=== PATIENT | male | born 1935 | race Asian ===

== ENCOUNTER 2019-08-29 02:35 | Inpatient (IN) | payer OTHER ==
[2019-08-29] VITALS (7 sets, daily range): BP systolic 111–157
[~2019-08-29] VITALS: Ht 160 cm; Wt 75.7 kg
[~2019-08-29 02:35] MED LIST: ASPI-1155 PO; FEBU40TA PO; FINA5TAB3 PO; FOLI-43 PO; GABA-529 PO; INSU100V26 SUBCUT; INSU100V9 SQ; LEVO75TA7 PO; MIDO5TAB PO; SEVE800T8 PO; SIMV40TA2 PO
--- NOTE | 2019-08-29 02:45 | NUR ---
Placed in room 01 . Placed on veneer sander, blood pressure machine and pulse oximeter. To gown for exam. Side rails up. Report given to MANISH Tovar
--- NOTE | 2019-08-29 02:59 | NUR ---
Patient brought in with son complaining of substernal non radiating chest pain starting 1 hour prior to arrival with shortness of breath. Patient reports has history of ESRD and triple bypass. REports dialysis on Tuesday, and Tuesday. Last Dialysis was 08/28/19. Pain is described as tightness, 12/11. PAtient has shunt on right ac. Patient reports software test developer is Demar Francis and Overhead Cleaner Maintainer is Dr. Townsend. No other complaints/injuries per patient or as noted. Will continue to monitor.
[2019-08-29] MEDS ORDERED: ASPIRIN 81 MG TAB.CHEW PO ONE (03:00)
--- NOTE | 2019-08-29 03:00 | NUR ---
Dr. Palmer bedside for pt eval
[2019-08-29 03:59] LABS: EOSINOPHILS # (AUTO) 0.3 K/uL (0.0-0.4)
--- NOTE | 2019-08-29 04:01 | NUR ---
VSS no s/s of acute distress Resting on gurney rails up
[2019-08-29 04:04] LABS: BASOPHILS # (AUTO) 0.1 K/uL (0.0-0.2); EOSINOPHILS % (AUTO) 4.7 % (0.0-4.0); HEMATOCRIT 23.6 % (36-54); HEMOGLOBIN 7.7 g/dL (14.0-18.0); LYMPHOCYTES # (AUTO) 1.1 K/uL (1.0-5.5); MEAN CORPUSCULAR HEMOGLOBIN 32 pg (27-31); MEAN CORPUSCULAR HGB CONC 33 % (32-36); MEAN CORPUSCULAR VOLUME 98 fL (79.0-98.0); MONOCYTES # (AUTO) 0.6 K/uL (0.0-1.0); MONOCYTES % (AUTO) 8.7 % (1.7-9.3); NEUTROPHILS # (AUTO) 4.9 K/uL (1.8-7.7); NEUTROPHILS % (AUTO) 69.6 % (40.0-70.0); PLATELET COUNT (AUTO) 245 K/uL (130-430); RED BLOOD CELL COUNT(AUTO) 2.41 MIL/uL (4.2-6.2); RED CELL DISTRIBUTION WIDTH 16.7 % (9.0-15.0)
[2019-08-29 04:13] LABS: PROTHROMBIN TIME 10.1 SECS (9.5-12.5)
[2019-08-29 04:15] LABS: ANION GAP 6 (5-15); CALCIUM 8.8 mg/dL (8.4-11.0); CHLORIDE 101 mmol/L (98-107); CREATININE 5.82 mg/dL (0.55-1.30); GLUCOSE 235 mg/dL (70-99); POTASSIUM 4.9 mmol/L (3.5-5.1); SODIUM SERUM 138 mmol/L (136-145); UREA NITROGEN, BLOOD 40 mg/dL (8-21)
[2019-08-29 04:21] LABS: ALANINE AMINOTRANSFERASE 23 U/L (12-78); ALBUMIN 3.4 g/dL (3.4-4.8); ASPARTATE AMINOTRANSFERASE 22 U/L (10-37); TOTAL BILIRUBIN 0.5 mg/dL (0.0-1.0)
--- NOTE | 2019-08-29 05:03 | NUR ---
Dr. Mcguire bedside for pt eval
[2019-08-29] MEDS ORDERED: INSULIN REGULAR, HUMAN 100 UNITS/ML, 10 ML VIAL (humuLIN R) SUBCUT PRN (05:15)
[2019-08-29] MEDS ORDERED: MIDODRINE HCL 5 MG TABLET (PROAMATINE) PO SCH (05:15)
[2019-08-29] MEDS ORDERED: ONDANSETRON HCL 4 MG/2 ML VIAL IVP PRN (05:15)
[2019-08-29] MEDS ORDERED: MORPHINE 2 MG/ML INJ. SYRINGE IVP PRN (05:15)
[2019-08-29] MEDS ORDERED: ALBUTEROL SULFATE 0.083% 2.5 MG/3 ML VIAL.NEB INH PRN (05:15)
--- NOTE | 2019-08-29 05:18 | NUR ---
LAB BEDSIDE FOR TYPE AND CROSS SCREEN, WELL TOLERATED
--- NOTE | 2019-08-29 05:47 | NUR ---
ADMIT NOTE Received pt from ER to the floor with a diagnosis of NSTEMI. Admission process initiated. patient oriented to pain management, safety and call light-teach back done.
--- NOTE | 2019-08-29 05:47 | NUR ---
Patient will be admitted to care of Dr. Atkins. Admitted to Tele unit. Will go to room 119C. Belongings list completed. Complete and up to date summary report printed. SBAR report to be given at bedside with opportunity for questions.
--- NOTE | 2019-08-29 05:47 | NUR ---
Transfer to Tele via ACLS protocol. Licensed nurse present. IV present no signs or symptoms of infiltration.
[2019-08-29 05:48] LABS: PROTHROMBIN TIME 10.4 SECS (9.5-12.5)
[2019-08-29 05:56] LABS: TOTAL IRON BIND. CAPACITY 295 ug/dL (250-450)
--- NOTE | 2019-08-29 06:07 | NUR ---
CONSULT: CONSULT CALLED FOR DR. YOUSIF I SPOKE WITH ARUN YOST MARBLE SETTER HELPER FOR DR. YOUSIF REASON FOR CONSULT: ESRD REQUESTING CONSULT: DR GARCIA CLAY WASHER PHONE NUMBER: [phone]
[2019-08-29] MEDS: LEVOTHYROXINE SODIUM 0.1 MG TABLET PO SCH (06:30)
--- NOTE | 2019-08-29 06:37 | NUR ---
CONSULTATION PAGED REASON FOR CONSULTATION:CHEST PAIN WAS CONSULT CALLED?Y PERSON WHO WAS NOTIFIED:ARUN CONSULTING PHYSICIAN:EDILMA MELVIN SENIOR PUBLICATIONS SPECIALIST SPECIALTY:CARDIO SENIOR PUBLICATIONS SPECIALIST PHONE NUMBER:[phone] REQUESTING PHYSICIAN:CHERYL TRIPLETT
--- NOTE | 2019-08-29 07:20 | NUR ---
closing note Patient is resting in comfortable position, no s/sx of distress, no pain. Due medication, Synthroid given and blood glucose done w/ result of 137 mg/dL. Endorsed care/report
--- NOTE | 2019-08-29 08:10 | NUR ---
Opening Note Received report from erp specialist RN. Pt states no chest pain currently. No distress noted. IV site intact, patent. Pt states he currently has immature AV shunt in left arm, noted permacath on right subclavian. No other complaints at this time.
[2019-08-29] MEDS: ASPIRIN 81 MG TAB.CHEW PO SCH (09:00)
[2019-08-29] MEDS: CARVEDILOL 3.125 MG TABLET (COREG) PO SCH ×2 (10:08→20:51)
[2019-08-29] MEDS: FOLIC ACID 1 MG TABLET PO SCH (10:08)
[2019-08-29] MEDS: GABAPENTIN 100 MG CAPSULE PO SCH ×3 (10:09→20:49)
[2019-08-29] MEDS: SEVELAMER CARBONATE 800 MG TABLET PO SCH ×3 (10:09→17:33)
[2019-08-29] MEDS: FINASTERIDE 5 MG TABLET (PROSCAR) PO SCH (10:09)
--- NOTE | 2019-08-29 10:20 | NUR ---
Pt up in chair sitting. No distress noted. Educated pt on calling for assistance when walking. Pt states understanding.
[2019-08-29 10:49] LABS: BASOPHILS # (AUTO) 0.1 K/uL (0.0-0.2); BASOPHILS % (AUTO) 0.9 % (0.0-2.0); EOSINOPHILS # (AUTO) 0.4 K/uL (0.0-0.4); EOSINOPHILS % (AUTO) 5.3 % (0.0-4.0); HEMATOCRIT 23.1 % (36-54); HEMOGLOBIN 7.5 g/dL (14.0-18.0); LYMPHOCYTES # (AUTO) 1.4 K/uL (1.0-5.5); LYMPHOCYTES % (AUTO) 19.7 % (20.5-51.5); MEAN CORPUSCULAR HEMOGLOBIN 32 pg (27-31); MEAN CORPUSCULAR HGB CONC 33 % (32-36); MEAN CORPUSCULAR VOLUME 99 fL (79.0-98.0); MONOCYTES # (AUTO) 0.6 K/uL (0.0-1.0); MONOCYTES % (AUTO) 8.5 % (1.7-9.3); NEUTROPHILS # (AUTO) 4.6 K/uL (1.8-7.7); NEUTROPHILS % (AUTO) 65.6 % (40.0-70.0); PLATELET COUNT (AUTO) 233 K/uL (130-430); RED BLOOD CELL COUNT(AUTO) 2.33 MIL/uL (4.2-6.2); RED CELL DISTRIBUTION WIDTH 16.6 % (9.0-15.0); WHITE BLOOD COUNT (AUTO) 7.1 K/uL (4.8-10.8)
[2019-08-29 11:13] LABS: ALANINE AMINOTRANSFERASE 25 U/L (12-78); ALBUMIN 3.3 g/dL (3.4-4.8); ANION GAP 4 (5-15); ASPARTATE AMINOTRANSFERASE 24 U/L (10-37); CALCIUM 8.6 mg/dL (8.4-11.0); CHLORIDE 102 mmol/L (98-107); CREATININE 6.38 mg/dL (0.55-1.30); GLUCOSE 150 mg/dL (70-99); POTASSIUM 5.2 mmol/L (3.5-5.1); SODIUM SERUM 138 mmol/L (136-145); TOTAL BILIRUBIN 0.4 mg/dL (0.0-1.0); UREA NITROGEN, BLOOD 42 mg/dL (8-21)
--- NOTE | 2019-08-29 11:34 | NUR ---
[facility]PHRO CONSULT CALLED REASON FOR CONSULTATION:DIALYSIS WAS CONSULT CALLED?Y PERSON WHO WAS NOTIFIEDlDULCE CONSULTING PHYSICIAN:AMARI FRANKS ( BASIN FINISH OPERATOR TIG WELDER) LABORER YARD SPECIALTY:NEPHRO LABORER YARD PHONE NUMBER:[phone]
[2019-08-29 11:38] LABS: CHOLESTEROL 94 mg/dL (<200); HDL CHOLESTEROL 37 mg/dL (>45); LDL CHOLESTEROL 39 mg/dL (<100); TRIGLYCERIDES 73 mg/dL (30-150)
--- NOTE | 2019-08-29 11:47 | NUR ---
SS NOTES: GARNETT FEEDER was referred by CM to see patient for DCP. GARNETT FEEDER met with patient at bedside. Pt was cooperative, alert and oriented x4. Pt had normal mood, normal voice, average eye contact and appropriate affect. Pt is an 84 year old who came in via ED. Pt resides with sonJorge Luis (POA) in a one leela home with no steps to get to the front door. Pt is independent with his ADL's and utilizes a walker to go around the community. Pt states he is "a little unsteady". Pt states his only source of income is his custodial from [facility]. Pt currently is a dialysis patient at [facility] on [address]. Pt denies any history of mental health or substance use and finds support form his son and his daughter. Pt has an advanced directive and sonJorge Luis is his POA. If discharged to SNF, pt prefers around [facility] and no preference on [facility]. GARNETT FEEDER provided pt with senior resources. No further SS needs identified at this time, but will remain available when needed. Addendum: 08/29/19 at 1226 by Lesly EDGAR GARNETT FEEDER provided pt with Becual resource, senior packet and [facility] phone number.
--- NOTE | 2019-08-29 12:30 | NUR ---
Pt back in bed. No acute distress noted. Pt states no pain at this time.
--- NOTE | 2019-08-29 17:30 | NUR ---
Pt currently receiving dialysis. Pt states no pain or distress at this time.
[2019-08-29] MEDS: INSULIN REGULAR, HUMAN 100 UNITS/ML, 10 ML VIAL (humuLIN R) SUBCUT PRN (17:41)
[2019-08-29] MEDS ORDERED: HEPARIN SODIUM,PORCINE 5000 UNITS/ML VIAL ONE (18:05)
--- NOTE | 2019-08-29 19:00 | NUR ---
Closing Pt is currently receiving dialysis. Pt states no pain or distress at this time. No other complaints at this time. Will endorse plan of care to warehouse worker 2nd shift RN.
--- NOTE | 2019-08-29 19:30 | NUR ---
OPENING NOTES Patient is resting with dialysis nurse at bedside. No signs of distress at this time. Oriented patient to plan of care and call light, patient able to verbalize back use of call light. Call light within reach, bed at lowest position, bed alarm on. Will continue to monitor.
[2019-08-29] MEDS: SIMVASTATIN 40 MG TABLET PO SCH (20:50)
--- NOTE | 2019-08-29 21:00 | NUR ---
DIALYSIS COMPLETED, 800 OUT, Patient is comfortable, eating dinner. No signs of distress observed. Safety precautions in place. Will continue to monitor.
--- NOTE | 2019-08-29 23:10 | NUR ---
Patient ambulates to the restroom, patient refuses bed alarm after patient understands education for risks and benefits of bed alarm. will continue to monitor.
[2019-08-30] VITALS: BP_SYST 113
[2019-08-30 00:05] VITALS: BP_SYST 140
--- NOTE | 2019-08-30 01:58 | NUR ---
Patient is resting, eyes closed. No signs of respiratory distress observed. Call light within reach. Will continue to monitor.
--- NOTE | 2019-08-30 02:30 | NUR ---
Patient is resting, eyes closed. No signs of distress. Patient is comfortable with one blanket. Will continue to monitor.
--- NOTE | 2019-08-30 04:10 | NUR ---
Patient is asleep, rise and fall of chest noted. No distress at this time. Will continue to monitor.
[2019-08-30 05:58] LABS: ALANINE AMINOTRANSFERASE 18 U/L (12-78); ALBUMIN 2.9 g/dL (3.4-4.8); ANION GAP 6 (5-15); ASPARTATE AMINOTRANSFERASE 19 U/L (10-37); CALCIUM 8.2 mg/dL (8.4-11.0); CHLORIDE 102 mmol/L (98-107); CREATININE 4.03 mg/dL (0.55-1.30); GLUCOSE 149 mg/dL (70-99); POTASSIUM 4.1 mmol/L (3.5-5.1); SODIUM SERUM 138 mmol/L (136-145); THYROID STIMULATING HORMONE 6.46 uIu/mL (0.36-3.74); TOTAL BILIRUBIN 0.3 mg/dL (0.0-1.0); UREA NITROGEN, BLOOD 21 mg/dL (8-21)
[2019-08-30] MEDS: LEVOTHYROXINE SODIUM 0.1 MG TABLET PO SCH (06:25)
[2019-08-30 06:28] LABS: BASOPHILS # (AUTO) 0.1 K/uL (0.0-0.2); EOSINOPHILS # (AUTO) 0.3 K/uL (0.0-0.4); EOSINOPHILS % (AUTO) 4.8 % (0.0-4.0); LYMPHOCYTES # (AUTO) 1.6 K/uL (1.0-5.5); LYMPHOCYTES % (AUTO) 22.8 % (20.5-51.5); MEAN CORPUSCULAR HEMOGLOBIN 33 pg (27-31); MEAN CORPUSCULAR HGB CONC 33 % (32-36); MEAN CORPUSCULAR VOLUME 99 fL (79.0-98.0); MONOCYTES # (AUTO) 0.5 K/uL (0.0-1.0); MONOCYTES % (AUTO) 7.9 % (1.7-9.3); NEUTROPHILS # (AUTO) 4.4 K/uL (1.8-7.7); NEUTROPHILS % (AUTO) 63.5 % (40.0-70.0); PLATELET COUNT (AUTO) 237 K/uL (130-430); RED BLOOD CELL COUNT(AUTO) 2.13 MIL/uL (4.2-6.2); RED CELL DISTRIBUTION WIDTH 16.8 % (9.0-15.0); WHITE BLOOD COUNT (AUTO) 6.9 K/uL (4.8-10.8)
--- NOTE | 2019-08-30 06:44 | NUR ---
ENDING NOTES Patient is resting, blood sugar of 126, no insulin needed. No signs of distress at this time. Call light within reach, bed at lowest position, bed alarm off per request after patient verbalizes understanding and demonstrates use of call light. Dr. Francis made aware of Troponin of 0.813, no new orders received. All needs met throughout shift. Will endorse care to oncoming shift.
[2019-08-30 07:52] LABS: HEMATOCRIT 21.1 % (36-54)
[2019-08-30 08:00] VITALS: BP_SYST 122
[2019-08-30] MEDS: SEVELAMER CARBONATE 800 MG TABLET PO SCH ×3 (08:58→17:30)
[2019-08-30] MEDS: FOLIC ACID 1 MG TABLET PO SCH (08:58)
[2019-08-30] MEDS: ASPIRIN 81 MG TAB.CHEW PO SCH (08:59)
[2019-08-30] MEDS: FINASTERIDE 5 MG TABLET (PROSCAR) PO SCH (08:59)
[2019-08-30] MEDS: CARVEDILOL 3.125 MG TABLET (COREG) PO SCH ×2 (08:59→21:14)
[2019-08-30] MEDS: GABAPENTIN 100 MG CAPSULE PO SCH ×3 (08:59→21:10)
--- NOTE | 2019-08-30 10:04 | NUR ---
Nutrition Update Rei Scale 18 noted. Pt admitted for NON-STEMI. Diet: CCHO, 40 gm protein, renal, vegetarian-lactoovo BMI: 29.6 kg/m2 RD to follow per nutrition care standards.
[2019-08-30 12:00] VITALS: BP_SYST 115
[2019-08-30] MEDS: INSULIN REGULAR, HUMAN 100 UNITS/ML, 10 ML VIAL (humuLIN R) SUBCUT PRN ×3 (12:00→21:19)
[2019-08-30 12:06] LABS: FERRITIN 1106 ng/mL (30-400)
[2019-08-30] MEDS ORDERED: HEPARIN SODIUM,PORCINE 5000 UNITS/ML VIAL ONE (13:23)
[2019-08-30] MEDS ORDERED: COMMUNICATION ORDER XX ONE (13:30)
[2019-08-30] MEDS ORDERED: HEPARIN SODIUM,PORCINE 5000 UNITS/ML VIAL MC ONE (13:30)
[2019-08-30 16:00] VITALS: BP_SYST 102
--- NOTE | 2019-08-30 19:30 | NUR ---
OPENING NOTES Patient is resting with family at bedside. No signs of distress at this time. Oriented patient to plan of care and call light, patient able to verbalize back use of call light. Call light within reach, bed at lowest position, bed alarm off after patient verbalizes understanding of bed alarm purpose. Endorsed that patient had had Dialysis and 2 units of blood provided during daytime. Will continue to monitor.
[2019-08-30 20:00] VITALS: BP_SYST 133
[2019-08-30] MEDS: SIMVASTATIN 40 MG TABLET PO SCH (21:10)
--- NOTE | 2019-08-30 22:15 | NUR ---
Patient is resting, no signs of distress observed. Will continue to monitor.
[2019-08-31] VITALS: BP_SYST 113
--- NOTE | 2019-08-31 00:30 | NUR ---
Patient is resting, no signs of acute respiratory distress observed. safety precautions in place. Will continue to monitor.
--- NOTE | 2019-08-31 02:22 | NUR ---
Patient is provided with apple juice. Will continue to monitor.
[2019-08-31] MEDS: LEVOTHYROXINE SODIUM 0.1 MG TABLET PO SCH (06:16)
--- NOTE | 2019-08-31 06:36 | NUR ---
CLOSING NOTES Patient is resting, no signs of distress observed. Ice water provided per request. Call light within reach, bed at lowest position, bed alarm off after patient verbalizes understanding of bed alarm purpose. All needs met throughout shift. will endorse care to oncoming shift.
[2019-08-31 06:58] LABS: BASOPHILS # (AUTO) 0.1 K/uL (0.0-0.2); BASOPHILS % (AUTO) 0.7 % (0.0-2.0); EOSINOPHILS # (AUTO) 0.4 K/uL (0.0-0.4); EOSINOPHILS % (AUTO) 4.7 % (0.0-4.0); HEMATOCRIT 31.4 % (36-54); HEMOGLOBIN 10.6 g/dL (14.0-18.0); LYMPHOCYTES # (AUTO) 1.7 K/uL (1.0-5.5); LYMPHOCYTES % (AUTO) 20.2 % (20.5-51.5); MEAN CORPUSCULAR HEMOGLOBIN 32 pg (27-31); MEAN CORPUSCULAR HGB CONC 34 % (32-36); MEAN CORPUSCULAR VOLUME 94 fL (79.0-98.0); MONOCYTES # (AUTO) 0.9 K/uL (0.0-1.0); MONOCYTES % (AUTO) 10.1 % (1.7-9.3); NEUTROPHILS # (AUTO) 5.4 K/uL (1.8-7.7); NEUTROPHILS % (AUTO) 64.3 % (40.0-70.0); PLATELET COUNT (AUTO) 210 K/uL (130-430); RED BLOOD CELL COUNT(AUTO) 3.36 MIL/uL (4.2-6.2); RED CELL DISTRIBUTION WIDTH 19.3 % (9.0-15.0); WHITE BLOOD COUNT (AUTO) 8.4 K/uL (4.8-10.8)
[2019-08-31 07:05] LABS: ANION GAP 5 (5-15); CALCIUM 8.5 mg/dL (8.4-11.0); CHLORIDE 102 mmol/L (98-107); CREATININE 4.25 mg/dL (0.55-1.30); GLUCOSE 135 mg/dL (70-99); POTASSIUM 4.1 mmol/L (3.5-5.1); SODIUM SERUM 137 mmol/L (136-145); UREA NITROGEN, BLOOD 21 mg/dL (8-21)
--- NOTE | 2019-08-31 07:50 | NUR ---
Opening note patient resting in bed a/ox4, denies pain, assessment complete, IV line is patent and infusing well, educated merchandising consultant light system and plan of care, he verbalized understanding, bed in lowest position, two side rails up, call light within reach, fall and aspiration precautions in place.
[2019-08-31 08:06] VITALS: BP_SYST 142
[2019-08-31] MEDS: FINASTERIDE 5 MG TABLET (PROSCAR) PO SCH (08:26)
[2019-08-31] MEDS: GABAPENTIN 100 MG CAPSULE PO SCH (08:26)
[2019-08-31] MEDS: SEVELAMER CARBONATE 800 MG TABLET PO SCH (08:26)
[2019-08-31] MEDS: CARVEDILOL 3.125 MG TABLET (COREG) PO SCH (08:26)
[2019-08-31] MEDS: FOLIC ACID 1 MG TABLET PO SCH (08:26)
[2019-08-31] MEDS: ASPIRIN 81 MG TAB.CHEW PO SCH (08:26)
--- NOTE | 2019-08-31 08:30 | NUR ---
Medication patient resting in bed, awake, denies pain, educated on medications uses and potential side effects, he verbalized understanding and tolerated well, no other needs at this time, bed in lowest position, two side rails up, call light within reach, fall and aspiration precautions in place.
[2019-08-31] MEDS ORDERED: COR3.125 PO (09:34)
[2019-08-31 09:48] VITALS: BP_SYST 142
--- NOTE | 2019-08-31 10:00 | NUR ---
Called pharmacy/RN rounds patient's prescription is in progress, will inform him. Informed patient of discharge home today, patient is aware.
--- NOTE | 2019-08-31 11:23 | NUR ---
D/C Patient Patient given medication reconciliation form and D/C instructions. Exit Care provided. Patient verbalized understanding. MD discussed with patient the results and treatment provided. Patient in stable condition, ID band removed. IV catheter removed, intact and dressing applied, no active bleeding. Rx of COREG - INSTRUCTED THE PATIENT AND HIS SON TO ANIMAL RIDE MANAGER AT THE PHARMACY TODAY. Patient educated on pain management. All belongings sent with patient.
--- NOTE | 2019-09-06 14:13 | NUR ---
Discharge Follow Up Phone Call Phoned patient, . Patient stated he was doing fine. He filled his prescription and is taking his medications as directed. He is following up at the dialysis center. No questions or concerns.
== END 2019-08-31 11:23 | disposition home or self-care (01) | DRG 280 ==
LOC: SED 02:35 → STU 04:41
PROVIDERS: ADMIT Internal Medicine Hospice and Palliative Medicine; ATTEND Internal Medicine Hospice and Palliative Medicine
PROC: 5A1D70Z Performance of Urinary Filtration, Intermittent, Less than 6 Hours Per Day (ICD-10-PCS; principal; 2019-08-29)
PROC: 5A1D70Z Performance of Urinary Filtration, Intermittent, Less than 6 Hours Per Day (ICD-10-PCS; 2019-08-30)
PROC: 30233N1 Transfusion of Nonautologous Red Blood Cells into Peripheral Vein, Percutaneous Approach (ICD-10-PCS; 2019-08-30)
DX: I21.A1 Myocardial infarction type 2 (principal); N18.6 End stage renal disease; I50.31 Acute diastolic (congestive) heart failure; I13.2 Hypertensive heart and chronic kidney disease with heart failure and with stage 5 chronic kidney disease, or end stage renal disease; E11.22 Type 2 diabetes mellitus with diabetic chronic kidney disease; E11.65 Type 2 diabetes mellitus with hyperglycemia; E03.9 Hypothyroidism, unspecified; E78.5 Hyperlipidemia, unspecified; I25.10 Atherosclerotic heart disease of native coronary artery without angina pectoris; D63.1 Anemia in chronic kidney disease; I34.0 Nonrheumatic mitral (valve) insufficiency; N40.0 Benign prostatic hyperplasia without lower urinary tract symptoms; Z79.4 Long term (current) use of insulin; Z83.3 Family history of diabetes mellitus; Z99.2 Dependence on renal dialysis; Z95.1 Presence of aortocoronary bypass graft; Z79.82 Long term (current) use of aspirin; Z79.899 Other long term (current) drug therapy
CPT/HCPCS: 36415; 71045; 80048; 80053; 80061; 82550-TC; 82607; 82728; 82962; 83036; 83540-TC; 83550-TC; 83880; 84443-TC; 84484; 85025; 85379; 85610-TC; 86886; 86900; 86901; 86920; 87081; 90935; 90937; 93005; 93306; 99285; G0378; J1644; J1815; J2270; J7030; P9021

== ENCOUNTER 2021-04-28 19:07 | Inpatient (IN) | payer OTHER, SELFPAY ==
[~2021-04-28] VITALS: Ht 160 cm; Wt 63.1 kg
[2021-04-28 19:07] VITALS: BP_SYST 115
[~2021-04-28 19:07] MED LIST changes: +AMOX-426 PO; +COR3.125 PO; -FEBU40TA PO; -FINA5TAB3 PO; -MIDO5TAB PO; +MIDO5TAB4 PO; +NEPH PO; +PRO40 PO
[2021-04-28] MEDS ORDERED: DOCU-144 PO (19:26)
[2021-04-28] MEDS ORDERED: [UNRECOGNIZED DRUG - CODE] PO (19:29)
[2021-04-28] MEDS ORDERED: VITD400 PO (19:29)
[2021-04-28] MEDS ORDERED: ASPIRIN 81 MG TAB.CHEW PO ONE (19:30)
[2021-04-28 20:40] LABS: BASOPHILS # (AUTO) 0.1 K/uL (0.0-0.2); BASOPHILS % (AUTO) 0.8 % (0.0-2.0); EOSINOPHILS # (AUTO) 0.3 K/uL (0.0-0.4); LYMPHOCYTES # (AUTO) 0.9 K/uL (1.0-5.5); LYMPHOCYTES % (AUTO) 8.8 % (20.5-51.5); MEAN CORPUSCULAR HEMOGLOBIN 32 pg (27-31); MEAN CORPUSCULAR HGB CONC 31 % (32-36); MEAN CORPUSCULAR VOLUME 102 fL (79.0-98.0); MONOCYTES # (AUTO) 0.7 K/uL (0.0-1.0); MONOCYTES % (AUTO) 7.3 % (1.7-9.3); NEUTROPHILS # (AUTO) 8.1 K/uL (1.8-7.7); NEUTROPHILS % (AUTO) 80.1 % (40.0-70.0); PLATELET COUNT (AUTO) 198 K/uL (130-430); RED BLOOD CELL COUNT(AUTO) 2.03 MIL/uL (4.2-6.2); RED CELL DISTRIBUTION WIDTH 18.5 % (9.0-15.0); WHITE BLOOD COUNT (AUTO) 10.1 K/uL (4.8-10.8)
[2021-04-28 21:00] LABS: ANION GAP 7 (5-15); CALCIUM 8.3 mg/dL (8.4-11.0); CHLORIDE 98 mmol/L (98-107); CREATININE 2.81 mg/dL (0.55-1.30); GLUCOSE 333 mg/dL (70-99); HEMOGLOBIN 6.5 g/dL (14.0-18.0); SODIUM SERUM 133 mmol/L (136-145); UREA NITROGEN, BLOOD 36 mg/dL (8-21)
[2021-04-28 21:01] LABS: HEMATOCRIT 20.7 % (36-54)
[2021-04-28 21:04] LABS: INR 1.2 (0.80-1.20); PROTHROMBIN TIME 12.5 SECS (9.5-12.5)
[2021-04-28 21:05] LABS: ALANINE AMINOTRANSFERASE 36 U/L (12-78); ALBUMIN 2.6 g/dL (3.4-4.8); ASPARTATE AMINOTRANSFERASE 27 U/L (10-37); TOTAL BILIRUBIN 0.5 mg/dL (0.0-1.0)
[2021-04-28] MEDS ORDERED: ACETAMINOPHEN 325 MG TABLET PO PRN (23:15)
[2021-04-28] MEDS ORDERED: ALBUTEROL SULFATE 0.083% 2.5 MG/3 ML VIAL.NEB INH PRN (23:15)
[2021-04-28] MEDS: PANTOPRAZOLE SODIUM 40 MG/VIAL (PROTONIX) IVP SCH (23:29)
[2021-04-28 23:45] VITALS: BP_SYST 115
[2021-04-29 03:06] VITALS: BP_SYST 114
[2021-04-29] MEDS: NORMAL SALINE 5 ML DISP.SYRIN IVF SCH ×3 (06:00→20:28)
[2021-04-29 07:49] LABS: BASOPHILS # (AUTO) 0.1 K/uL (0.0-0.2); BASOPHILS % (AUTO) 0.7 % (0.0-2.0); EOSINOPHILS # (AUTO) 0.2 K/uL (0.0-0.4); EOSINOPHILS % (AUTO) 2.2 % (0.0-4.0); HEMATOCRIT 25.4 % (36-54); HEMOGLOBIN 8.2 g/dL (14.0-18.0); LYMPHOCYTES # (AUTO) 1.2 K/uL (1.0-5.5); LYMPHOCYTES % (AUTO) 12.3 % (20.5-51.5); MEAN CORPUSCULAR HEMOGLOBIN 30 pg (27-31); MEAN CORPUSCULAR HGB CONC 32 % (32-36); MEAN CORPUSCULAR VOLUME 92 fL (79.0-98.0); MONOCYTES # (AUTO) 0.7 K/uL (0.0-1.0); MONOCYTES % (AUTO) 6.7 % (1.7-9.3); NEUTROPHILS # (AUTO) 7.7 K/uL (1.8-7.7); NEUTROPHILS % (AUTO) 78.1 % (40.0-70.0); PLATELET COUNT (AUTO) 173 K/uL (130-430); RED BLOOD CELL COUNT(AUTO) 2.76 MIL/uL (4.2-6.2); RED CELL DISTRIBUTION WIDTH 22.4 % (9.0-15.0); WHITE BLOOD COUNT (AUTO) 9.8 K/uL (4.8-10.8)
[2021-04-29 08:00] VITALS: BP_SYST 112
[2021-04-29 08:02] LABS: ANION GAP 9 (5-15); CALCIUM 8.5 mg/dL (8.4-11.0); CHLORIDE 99 mmol/L (98-107); CREATININE 3.05 mg/dL (0.55-1.30); GLUCOSE 287 mg/dL (70-99); POTASSIUM 4.3 mmol/L (3.5-5.1); SODIUM SERUM 133 mmol/L (136-145); UREA NITROGEN, BLOOD 54 mg/dL (8-21)
[2021-04-29 08:09] LABS: ALANINE AMINOTRANSFERASE 33 U/L (12-78); ALBUMIN 2.6 g/dL (3.4-4.8); ASPARTATE AMINOTRANSFERASE 27 U/L (10-37); TOTAL BILIRUBIN 0.9 mg/dL (0.0-1.0)
[2021-04-29] MEDS: PANTOPRAZOLE SODIUM 40 MG/VIAL (PROTONIX) IVP SCH ×2 (08:59→20:28)
[2021-04-29] MEDS: GABAPENTIN 100 MG CAPSULE PO SCH ×3 (08:59→20:28)
[2021-04-29] MEDS ORDERED: FOLIC ACID 1 MG TABLET PO SCH (09:00)
[2021-04-29] MEDS: CARVEDILOL 3.125 MG TABLET (COREG) PO SCH ×2 (09:00→20:29)
[2021-04-29] MEDS ORDERED: DEXTROSE 50% JECT 50 ML DISP.SYRIN IVP PRN (09:30)
[2021-04-29] MEDS ORDERED: GLUCOSE (DEXTROSE) ORAL GEL -Adults PO PRN (09:30)
[2021-04-29] MEDS ORDERED: D5W 1,000 ML IV PRN (09:30)
[2021-04-29] MEDS ORDERED: SIMETHICONE 40 MG/0.6 ML ML ONE (10:24)
[2021-04-29] MEDS ORDERED: fentaNYL CITRATE/PF 100 MCG/2 ML AMP ONE (10:25)
[2021-04-29] MEDS ORDERED: MIDAZOLAM HCL 5 MG/5 ML VIAL ONE (10:25)
[2021-04-29] MEDS ORDERED: FLUMAZENIL 0.1 MG/ML IVP ONE (11:10)
[2021-04-29 12:00] VITALS: BP_SYST 99
[2021-04-29] MEDS: INSULIN REGULAR, HUMAN 100 UNITS/ML, 10 ML VIAL (humuLIN R) SUBCUT PRN ×2 (12:20→18:27)
[2021-04-29 16:00] VITALS: BP_SYST 108
[2021-04-29 19:00] VITALS: BP_SYST 105
[2021-04-29 20:00] VITALS: BP_SYST 105
[2021-04-29] MEDS ORDERED: SIMVASTATIN 40 MG TABLET PO SCH (21:00)
[2021-04-30 00:30] VITALS: BP_SYST 110
[2021-04-30] MEDS ORDERED: CALCIUM CHLORIDE 1 GM/10 ML DISP.SYRIN (14 mEq Ca++/SYR) IV ONE (01:25)
[2021-04-30] MEDS ORDERED: SODIUM BICARBONATE 8.4% JECT 50 MEQ/50 ML SYRINGE IVP ONE (01:25)
[2021-04-30] MEDS ORDERED: EPINEPHrine JECT 0.1 MG/ML SYR IVP ONE (01:25)
[2021-04-30] MEDS ORDERED: VITAMIN B COMPLEX WITH C TAB/CAP PO SCH (09:00)
[2021-05-01] MEDS ORDERED: EPOETIN ALFA 3,000 UNITS/ML VIAL SUBCUT SCH (17:00)
== END 2021-04-30 01:26 | DRG 377 ==
LOC: SED 19:07 → STU 23:05
PROVIDERS: ADMIT Internal Medicine Hospice and Palliative Medicine; ATTEND Internal Medicine Hospice and Palliative Medicine
PROC: 0DB78ZX Excision of Stomach, Pylorus, Via Natural or Artificial Opening Endoscopic, Diagnostic (ICD-10-PCS; 2021-04-29)
PROC: 30233N1 Transfusion of Nonautologous Red Blood Cells into Peripheral Vein, Percutaneous Approach (ICD-10-PCS; 2021-04-29)
PROC: 5A12012 Performance of Cardiac Output, Single, Manual (ICD-10-PCS; principal; 2021-04-29 10:38)
DX: K29.71 Gastritis, unspecified, with bleeding (principal); N18.6 End stage renal disease; I42.9 Cardiomyopathy, unspecified; D62 Acute posthemorrhagic anemia; I24.8 Other forms of acute ischemic heart disease; I13.2 Hypertensive heart and chronic kidney disease with heart failure and with stage 5 chronic kidney disease, or end stage renal disease; I34.0 Nonrheumatic mitral (valve) insufficiency; E78.5 Hyperlipidemia, unspecified; D63.8 Anemia in other chronic diseases classified elsewhere; E11.43 Type 2 diabetes mellitus with diabetic autonomic (poly)neuropathy; K31.84 Gastroparesis; E03.9 Hypothyroidism, unspecified; R09.02 Hypoxemia; E11.51 Type 2 diabetes mellitus with diabetic peripheral angiopathy without gangrene; Z20.822 Contact with and (suspected) exposure to COVID-19; I50.9 Heart failure, unspecified; E11.22 Type 2 diabetes mellitus with diabetic chronic kidney disease; Z79.82 Long term (current) use of aspirin; Z79.899 Other long term (current) drug therapy; Z79.890 Hormone replacement therapy; Z89.512 Acquired absence of left leg below knee; Z95.1 Presence of aortocoronary bypass graft; Z99.2 Dependence on renal dialysis; I46.9 Cardiac arrest, cause unspecified
CPT/HCPCS: 36415; 36430; 43239; 71045; 80053; 82550; 82962; 83880; 84484; 85025; 85610-TC; 85730-TC; 86886; 86900; 86901; 86920; 87081; 88305; 88312; 88313; 92950; 93005; 94760; 99291; C9113; G0378; J0171; J2250; J3010; J3490; P9021